=== PATIENT | female | born 1955 | race Caucasian/White ===

== ENCOUNTER → 2023-06-27 06:20 | Day surgery (SDC) | payer MEDICARE, OTHER, SELFPAY | LOC: GI 06:20 | PROVIDERS: ATTENDING PHYSICIAN Specialist; FAMILY PHYSICIAN Family Medicine | DX: K51.50 Left sided colitis without complications (principal); K57.30 Diverticulosis of large intestine without perforation or abscess without bleeding; K62.5 Hemorrhage of anus and rectum; R19.4 Change in bowel habit | CPT/HCPCS: 45380; 88305 ==

== ENCOUNTER → 2023-10-17 13:09 | Outpatient (REF) | payer MEDICARE, OTHER, SELFPAY | LOC: WDC 13:09 | PROVIDERS: ATTENDING PHYSICIAN Family Medicine | DX: Z12.31 Encounter for screening mammogram for malignant neoplasm of breast (principal) | CPT/HCPCS: 77063; 77067 ==

== ENCOUNTER → 2024-10-17 13:25 | Outpatient (REF) | payer MEDICARE, OTHER, SELFPAY | LOC: WDC 13:25 | PROVIDERS: ATTENDING PHYSICIAN Family Medicine | DX: Z12.31 Encounter for screening mammogram for malignant neoplasm of breast (principal) | CPT/HCPCS: 77063; 77067 ==

== ENCOUNTER 2024-11-28 06:30 | Day surgery (SDC) | payer MEDICARE, OTHER, SELFPAY | END 2024-11-28 10:54 | disposition home or self-care (01) | LOC: GI 06:30 | PROVIDERS: ATTENDING PHYSICIAN Specialist | DX: K57.30 Diverticulosis of large intestine without perforation or abscess without bleeding (principal); K50.90 Crohn's disease, unspecified, without complications; K63.89 Other specified diseases of intestine; D17.5 Benign lipomatous neoplasm of intra-abdominal organs; K62.1 Rectal polyp; K52.9 Noninfective gastroenteritis and colitis, unspecified | CPT/HCPCS: 45385; 45380; 88305 ==

== ENCOUNTER 2025-02-23 12:39 | Emergency (ER) | payer MEDICARE, OTHER, SELFPAY ==
[2025-02-23 12:42] VITALS: BP 163/84
[2025-02-23 13:12] VITALS: BMI 27.6
[2025-02-23 13:16] VITALS: BP 134/85
[2025-02-23] MEDS: DUONEB 3 ML INH ×2 (13:33→14:26)
[2025-02-23 13:49] LABS: Hematocrit 43.2 % (37.0-47.0); Hemoglobin 14.1 g/dL (12.0-16.0); Mean Corp Hgb Conc. 32.6 g/dL (33.0-37.0); Mean Corpuscular Volume 90.9 fL (81.0-99.0); Nucleated Red Blood Cells % 0 %; Platelet Count 239 10^3/uL (130-400); Red Cell Dist. Width 12.7 % (11.5-14.5)
[2025-02-23 14:00] VITALS: BP 125/82
[2025-02-23 14:08] LABS: ALT (SGPT) 25 U/L (0-35); AST (SGOT) 24 U/L (14-36); Albumin 4.4 g/dl (3.5-5.0); Alkaline Phosphatase 78 U/L (38-126); Blood Urea Nitrogen 17 mg/dl (7-17); Calcium 9.6 mg/dl (8.4-10.2); Carbon Dioxide 25 mmol/L (22-30); Chloride 107 mmol/L (98-107); Estimated Creatinine Clearance 60 ml/min; Glucose 114 mg/dl (70-99); Potassium 4.2 mmol/L (3.5-5.1); Sodium 139 mmol/L (135-145); Total Protein 7.0 g/dl (6.3-8.2); eGFR > 60.00
[2025-02-23 14:18] LABS: Troponin I < 0.012 ng/ml
--- NOTE | 2025-02-23 14:23 | ED.GENMED ---
History of Present Illness
General
Chief Complaint: Cough
Source: patient and spouse
Exam Limitations: none
Time Seen by Provider: 02/23/25 13:31
Nursing documentation reviewed up to this point in time: agreed with
History of Present Illness
History of Present Illness:
Note:
CHIEF COMPLAINT(S)
Shortness of breath and difficulty breathing.
HISTORY OF PRESENT ILLNESS
The patient is a 70-year-old female with a known history of Chronic Obstructive Pulmonary Disease (COPD) presenting with exacerbation characterized by difficulty in breathing, described as 'straw breathing' upon arrival. She reported quitting
smoking two years ago. Recent treatments included oral prednisone starting in early January, on which she took 40 mg daily for five days, without a taper, prescribed by an urgent care physician. Despite this treatment, breathing difficulties
persisted, leading her to seek care today.
The patient was using an albuterol inhaler but mentioned difficulties in obtaining Advair due to cost issues at her preferred pharmacy. The dosage for Advair was 250 mcg/50 mcg but was cost-prohibitive, leading to her seeking a transfer to a more
affordable pharmacy.
Upon arrival at the healthcare facility, she received a breathing treatment, which provided some relief. However, she reported no current use of inhaled corticosteroids due to their cost. She described her experience with previous steroids as making
her feel restless and unable to sleep.
In addition to breathing problems, she emphasized her previous concerns that treatments were only addressing symptoms rather than the underlying cause. A discussion was held about COPD management, with an explanation that inflammation is a primary
issue addressed by medications such as steroids and bronchodilators, though irreversible lung damage due to smoking remains.
EXTERNAL RECORDS REVIEWED
Records from an urgent care visit in early January were mentioned, noting a prescription of 40 mg prednisone for five days without taper and discussions on inhaler costs and coverage.
SOCIAL HISTORY
The patient has a history of smoking cigarettes, which she ceased two years ago.
REVIEW OF SYSTEMS
- Respiratory: Reports of persistent wheezing and difficulty breathing. 'Straw breathing' noted on arrival, improvement after initial treatment. Difficulty sleeping due to respiratory symptoms.
- General: Feelings of restlessness when using steroids.
- Social: Smoking cessation two years ago.
PHYSICAL EXAM
General: Alert, no acute distress.
Skin: Warm, dry.
Head: Normocephalic, atraumatic.
Neck: Supple, trachea midline.
Eye Ears, Nose, Mouth and Throat: Oral mucosa moist.
Cardiovascular: Normal peripheral perfusion, no edema.
Respiratory: Respirations are non-labored, slight wheezing noted.
Gastrointestinal: Abdomen nondistended.
Back: Normal range of motion, normal alignment.
Musculoskeletal: Normal range of motion, normal strength.
Neurological: Alert and oriented to person, place, time, and situation, no focal neurological deficit observed.
Psychiatric: Cooperative, appropriate mood and affect.
PROBLEM LIST
Acute Problems:
- COPD exacerbation.
- Shortness of breath and wheezing.
PLAN
- Administer another breathing treatment during this visit.
- Initiate intravenous steroid administration to reduce inflammation.
- Discussion about continuation of albuterol for acute relief.
- Prescription for Advair (250/50) provided, assistance with pharmacy transfer discussed to ensure affordability.
- Emphasize long-term management through inhaled corticosteroids and referral to a bridal gown fitter for continued care and management of COPD. Patient is advised to avoid known allergens and respiratory irritants.
DIFFERENTIAL DIAGNOSIS
The Differential Diagnosis includes, in no particular order and is not limited to:
1. Chronic Obstructive Pulmonary Disease exacerbation
2. Asthma exacerbation
3. Pneumonia
4. Bronchitis
5. Heart failure
6. Anxiety with hyperventilation
7. Pulmonary embolism
8. Allergic reactions
9. Viral upper respiratory infections
10. Cardiomyopathy
CARE-UPDATE
02/23/25 - 15:31
Patient exhibits no signs of pneumonia on chest x-ray. Reports improvement in symptoms following multiple nebulizer treatments. Cleared for discharge.
EKG
My independent EKG interpretation is:.
- Rhythm: Normal sinus rhythm.
- ST & T wave abnormality: Present in lateral leads.
- Heart Rate: Not specified.
- HI Interval: Normal.
- QRS Duration: Normal.
- QT Interval: Normal.
- [place]: Not specified.
- Other Abnormalities: None mentioned beyond ST & T wave changes.
Disposition:
SUMMARY OF ENCOUNTER
The patient presented with shortness of breath, characteristic of a COPD exacerbation. There was no indication of pneumonia or congestive heart failure (CHF) based on the assessment. The patient experienced symptomatic improvement following
nebulizer treatments in the emergency department.
DISPOSITION
Discharge.
ASSESSMENT
COPD exacerbation, with no signs of pneumonia or CHF.
EMERGENCY TREATMENTS ADMINISTERED
Nebulizer treatments.
PLAN
Prescribe Advair Diskus (fluticasone propionate and salmeterol) for long-term management and a short course of oral prednisone to address inflammation. The patient is advised to avoid known triggers and is referred for a follow-up with a
bridal gown fitter.
PATIENT EDUCATION AND COUNSELING
Discussed the nature of COPD exacerbations and the role of medications, including inhaled corticosteroids, in managing inflammation and symptom relief.
FOLLOW-UP INSTRUCTIONS
Follow up with a bridal gown fitter for continued management of COPD. Monitor for symptoms, and return immediately if exacerbation occurs.
MEDICATION RECONCILIATION
1. Advair Diskus (fluticasone propionate and salmeterol) prescribed.
2. Prednisone prescribed for a short course.
MEDICAL DECISION MAKING
-Number and Complexity of Problems Addressed: Chronic conditions affecting care - COPD exacerbation.
-Data:
Category 1
My independent interpretation indicates no signs of pneumonia after the assessment in the emergency department.
Category 3
Discussion of management of the patients care with pulmonology for follow-up care and long-term management.
-Risk:
Prescription medication prescribed: Advair Diskus and prednisone.
DIAGNOSIS
Chronic Obstructive Pulmonary Disease (COPD) exacerbation - ICD-10: J44.1
Phy Exam
Physical Exam
Physical Exam:
.
Course
Orders/Labs/Results
Orders:
Orders
02/23/25 12:49
Chest [CR Chest - 2 Views ] Urgent
Comment:
Reason For Exam: cough, SOB
02/23/25 13:11
Electrocardiogram (*1) Urgent
Reason for Study: Shortness of Breath
02/23/25 13:12
EKG- Treatment ONCE
02/23/25 13:22
Ipratropium/Albuterol Sulfate [Duoneb] 3 ml INH R NOW ONE
02/23/25 13:35
CMP [Comprehensive Metabolic Panel] Urgent
Complete Blood Count/With Diff Urgent
Troponin I Urgent
02/23/25 14:23
Dexamethasone Sod Phosphate [Decadron] 10 mg IV NOW STA
Ipratropium/Albuterol Sulfate [Duoneb] 3 ml INH R NOW STA
Abnormal Lab Results
02/23/25
13:35
MCHC 32.6 L g/dL
(33.0-37.0)
Monocytes % 10.5 H %
(1.7-9.3)
Eosinophils % 7.1 H %
(0-6)
Glucose 114 H mg/dl
(70-99)
02/23/25 13:35
02/23/25 13:35
Vital Signs
Initial and Last Documented VS:
Initial Vital Signs
Temp Pulse Resp BP Pulse Ox
97.8 F 98 18 163/84 95
02/23/25 12:42 02/23/25 12:42 02/23/25 12:42 02/23/25 12:42 02/23/25 12:42
Last Documented Vital Signs
Temp Pulse Resp BP Pulse Ox
97.8 F 99 11 140/75 96
02/23/25 12:42 02/23/25 15:05 02/23/25 15:05 02/23/25 15:05 02/23/25 15:20
*Pulse Oximetry
SaO2: 93
Oxygen Mode of Delivery: Room air
Patient hypoxic: no
*Critical Care Note
Total Time (30-74mins, 75-104mins- exclusive of procedures): Not Applicable
ED Attending Note
-
Portions of this chart may have been created with voice recognition software.� Occasional wrong word or��sound alike� substitutions may have occurred due to the inherent limitations of voice recognition software.
Discharge Plan
Departure
Patient Disposition: Home (Routine Discharge)
Date of Disposition: 02/23/25
Time of Disposition: 14:35
Patient with high blood pressure during this ER visit?: No
Condition: Good
Discharge Problem:
Acute exacerbation of chronic obstructive pulmonary disease
Instructions: COPD exacerbation in adults - ED (DC), BLOOD PRESSURE
Prescriptions:
New
fluticasone propion-salmeterol [Advair Diskus] 250-50 mcg/dose blister with device
1 inh inhalation BID Qty: 60 0RF
prednisone 50 mg tablet
50 mg PO DAILY Qty: 5 0RF
No Action
lorazepam [Ativan] 1 mg Tablet
1 mg PO DAILY PRN (Reason: anxiety)
Referrals:
Mirna Voss MD [Family Provider, Family Practice]
Interventions
Interventions:
*Risk Screen - Suicide Last Done: 02/23/25 12:42
*General Assessment Last Done: 02/23/25 12:42
*Neglect/Abuse Screening Last Done: 02/23/25 13:13
*ED- Fall Risk Assessment Last Done: 02/23/25 13:13
*ED COVID-19 Vaccine History Last Done: 02/23/25 12:42
*ED Influenza Vaccine History Last Done: 02/23/25 12:42
*Nursing Disposition Last Done: 02/23/25 15:19
ED- Pulmonary Assessment Last Done: 02/23/25 13:17
Discharge Date and Time
Print Language: GEORGIAN
[2025-02-23] MEDS: DECADRON 10 MG IV (14:27)
[2025-02-23 15:05] VITALS: BP 140/75
== END 2025-02-23 15:38 | disposition home or self-care (01) ==
LOC: EMR 12:39
PROVIDERS: EMERGENCY PHYSICIAN Emergency Medicine; FAMILY PHYSICIAN Family Medicine
DX: J44.1 Chronic obstructive pulmonary disease with (acute) exacerbation (principal); Z79.51 Long term (current) use of inhaled steroids; Z79.52 Long term (current) use of systemic steroids; Z87.891 Personal history of nicotine dependence
CPT/HCPCS: 99284; 94640; 96374; 71046; 80053; 84484; 85025; 93005

== ENCOUNTER → 2025-04-09 11:09 | Outpatient (REF) | payer MEDICARE, OTHER, SELFPAY | LOC: RAD 11:09 | PROVIDERS: ATTENDING PHYSICIAN Internal Medicine Critical Care Medicine; FAMILY PHYSICIAN Family Medicine | DX: Z87.891 Personal history of nicotine dependence (principal) | CPT/HCPCS: 71271 ==